=== PATIENT | female | born 1965 | race Caucasian/White ===

== ENCOUNTER 2018-02-07 10:40 | Emergency (ER) | payer MEDICAID ==
--- NOTE | 2018-02-07 12:10 | EDPHY ---
General - History Smoking Status: Never smoked Time Seen by Provider: 02/07/18 10:40 Narrative: CHIEF COMPLAINT: Left wrist injury HISTORY OF PRESENT ILLNESS: Patient presents with complaints of left wrist pain status post fall. She fell on the wrist on Tuesday morning. She was walking and did not see ice when she slipped, landing on outstretched left hand. She felt a sudden onset of pain left wrist. It has been constant. She at 1st thought it was just sprain, that she did not present for evaluation. She [facility], with a obtain an x-ray that revealed a angulated distal radius Colles fracture. The center here for intervention. She has no numbness, tingling or weakness. Her pain is minimal. She did not strike her head or lose consciousness. No pain on her left elbow or shoulder. Able to range the shoulder and elbow without difficulty. No other associated complaints or modifying factors. Patient is currently homeless and concerned about cost ESTABLISHED ORTHOPEDIST: None REVIEW OF SYSTEMS: Ten systems reviewed and are negative unless otherwise noted in the HPI PAST MEDICAL HISTORY: Denies any ongoing medical history PAST SURGICAL HISTORY: No recent surgical history. Tonsils remotely SOCIAL HISTORY: Nonsmoker. No drug or alcohol use. Currently homeless FAMILY HISTORY: Noncontributory EXAMINATION General Appearance: Alert, no distress Cardiovascular: Symmetric radial pulses 2+. Brisk cap refill in the fingers left hand Neurological: A&O, radial, ulnar and median sensory symmetric. Strength is symmetric in the interossei. No wrist drop. Skin: Warm and dry, no rash. No puncture. No laceration. No petechiae or purpura. Extremities: Significant tenderness of the left wrist circumferentially. There is moderate edema. Compartments remain soft in the left forearm. Range of motion of the wrist not tested due to known fracture. Range of motion of the fingers intact. Neurovascular intact distally fracture Psychiatric: Mood and affect normal DIFFERENTIAL DIAGNOSES: Including but not limited to fracture, fracture dislocation, fracture with angulation, dislocation, subluxation MDM: 12:00 p.m. Mechanical fall on Tuesday on stretch hand. She does have a comminuted, angulated distal radius fracture. She has no neuro complaints. Her pain is tolerable. She has no injury elsewhere. I will consult Orthopedics to determine if she is a candidate for reduction given her delay isn't a rodriguez. She is in no acute distress, resting comfortably. NPO as of 10:00 p.m. Last night 12:10 p.m. Case discussed with orthopedist Dr. Flores. He has reviewed the x-ray. He does recommend that we attempt to reduce the wrist, as this may prevent the need for surgical intervention. He does recommend that we informed the patient that she may need surgery and that she will need to be seen in his office later this week or early next week. 12:50 p.m. Closed reduction performed. Difficulty due to mobility of the distal fracture segment. I was able to get good reduction but then this moved quickly. This performed with C-arm fluoroscopy. 1:15 p.m. Post reduction shows minimal improvement. The fracture segment was very mobile during attempted reduction. She has been placed in excellent splint with neurovascular intact post splinting. Patient will need to follow up with Orthopedics for definitive care and possible surgical intervention. 1:50 p.m. X-ray reveals minimal improvement of the bone fragment. I have re-evaluated the patient and discussed this with her. She will likely be a surgical candidate. She has instructions to remain in the splint at all times until seen by orthopedist. She will contact orthopedist for outpatient follow-up. We discussed ED precautions. We discussed short course of pain medication, ice and elevation. Case management has provided great assistance with this and helping obtain appointment for the patient. She is discharged in stable condition. PROCEDURE: Closed reduction of distal radius fracture Consent: Verbal Location: left Anesthesia: Hematoma block Procedure: After time-out and good hematoma block, the patient was placed in finger traps. I then manipulated the wrist with volar manipulation. There was successful reduction by C-arm, but the fracture segment was highly mobile and auto subluxes immediately. I held traction and placed back in the finger traps. She will be splinted this way. Complications: None Post-reduction film: Minimal improvement SUPERVISION: Patient was independently examined, but I discussed the case with my secondary supervising physician Dr. Redding Orthopedic consultation telephone, Dr. Flores ED Precautions: Worsening pain. Erythema, edema, cyanosis, pallor, paresthesia or anesthesia. (Richar Burgos) Discussion: The patient was evaluated and managed by the Physician Medical Transcription. I discussed the patient's presentation and course with the midlevel provider with them and agree with the evaluation. My co-signature indicates that I have reviewed this chart and I agree with the findings and plan of care as documented. I am the secondary supervising physician. Patient underwent an attempted closed reduction utilizing the hematoma block. I reviewed the x-rays before and after the reduction. Minimal improvement was seen secondary to instability of the fracture. Dr. Flores is also aware. Patient will follow up tomorrow for re-evaluation and she understands that operative intervention may be likely. (Darlene Redding) - Objective Vital Signs: Initial Vital Signs Temperature (C) 37.1 C 02/07/18 10:48 Heart Rate 95 02/07/18 10:48 Respiratory Rate 18 02/07/18 10:48 Blood Pressure 138/94 H 02/07/18 10:48 O2 Sat (%) 93 02/07/18 10:48 O2 Delivery Mode Room Air Allergies/Adverse Reactions: No Known Allergies Allergy (Unverified 02/07/18 10:48) Home Medications: Medication Instructions Recorded NK [No Known Home Meds] 02/07/18 Medications Given: Discontinued Medications Hydrocodone Bitart/Acetaminophen ([place] 5/325mg Prepack#6) 1 btl [facility] Stop: 02/07/18 14:02 Last Admin: 02/07/18 14:24 Dose: Not Given Departure - Departure Disposition: Home, Routine, Self-Care Clinical Impression: Colles' fracture of left radius, initial encounter for closed fracture, Fall Condition: Good Instructions: Hydrocodone/Acetaminophen (By mouth), Wrist Fracture in Adults ( ED) Additional Instructions: 1. Ice and elevate often 2. Ibuprofen 400 mg every 6-8 hours as needed 3. Pain medication as provided as needed, 1 pill every 4-6 hours 4. Follow up at [facility] for further care and assistance with orthopedic follow-up 5. You will need to see an orthopedist within the next week to 10 days for definitive care. 6. ED precautions for worsening pain, numbness, tingling Referrals: Wild Flores MD [Medical Doctor] - As per Instructions [facility],. [Clinic] - As per Instructions
[2018-02-07] MEDS ORDERED: HYDROCOD/APAP 5/325 PREPACK#6 BTL TAKEHOME ONE (14:01)
[2018-02-07 14:27] VITALS: BP 123/71
--- NOTE | 2018-02-07 17:11 | ASMTCMCOM ---
CM Note CM Note Notes: Pt presented to the ED through triage from [facility] where she was assessed for left wrist injury she sustained from a mechanical fall on 02/04/18. X-rays show a left comminuted Colle's wrist fracture that may need surgery. Pt's wrist was placed in a fiberglass splint. Pt is homeless and states she has been staying outside recently. Pt has an appt with Gildardo Blum, Director of Retirement Services, at the [facility] tomorrow around 3pm and she hopes she'll be approved to be able to stay there. *Not sure what led up to her not being able to stay there. Patient is very pleasant and appreciative of all care and assistance. Pt was being seen by Lolita, Homeless Outreach RN at [facility] this morning. This CM called Lolita ( [facility] cell [phone]) and updated her of pt's status and need for follow-up care. Lolita said patient will hopefully stop by during their walk-in hours this , as she had discussed with patient prior to coming to the ED. Patient aware and agreeable to this plan. Spoke with Marta with [employer] and she said patient's Medicaid is active and she is already enrolled with [facility]. [facility], Daysi Bradley, and she was able to stop by and visit with pt in the ED. Daysi said the patient has her card and info and will reach out for additional needs and assistance. This CM called the on-call orthopedist, Dr. Flores at [facility] ([phone]) and was able to get patient an appt next 02/16/18 at 10am. Patient had been discharged from the ED by the time the appt was scheduled so this CM e-mailed patient at [email or web address] per pt's request (pt doesn't have a cell phone). Also called Lolita at and informed her of pt's ortho appt. Lolita states she will make sure patient has the info. and bus passes to get to and from the appt. CM available for additional assistance if needed. Date Signed: 02/07/2018 05:11 PM Electronically Signed By:Cindy Magaña RN
--- NOTE | 2018-02-07 17:14 | ASDISCHSUM ---
Discharge Information Plan Status:Home with No Needs Medically Cleared to Leave: Discharge Date:02/07/2018 02:27 PM CM D/C Disposition:Home, Routine, Self-Care ADT D/C Disposition:Home, Routine, Self-Care Projected Discharge Date:02/07/2018 02:27 PM Transportation at D/C:None or Unknown Discharge Delay Reason: Follow-Up Date:02/07/2018 02:27 PM Discharge Slot: Final Diagnosis: Placement Information Patient Contact Information Contact Name:BETSY Relationship: Address: Home Phone: Work Phone: City: Alternate Phone: State/[email or web address] Code: Email: Financial Information Financial Class:Medicaid Primary Plan Desc:MEDICAID HEALTH [employer] Primary Plan Number:[id number] Secondary Plan Desc: Secondary Plan Number: Assessment Information [facility] Progress Note CM Note CM Note Notes: Pt presented to the ED through triage from [facility] where she was assessed for left wrist injury she sustained from a mechanical fall on 02/04/18. X-rays show a left comminuted Colle's wrist fracture that may need surgery. Pt's wrist was placed in a fiberglass splint. Pt is homeless and states she has been staying outside recently. Pt has an appt with Gildardo Blum, Director of Group Home Services, at the [facility] tomorrow around 3pm and she hopes she'll be approved to be able to stay there. *Not sure what led up to her not being able to stay there. Patient is very pleasant and appreciative of all care and assistance. Pt was being seen by Lolita Homeless Outreach RN at [facility] this morning. This CM called Lolita ([facility] cell [phone]) and updated her of pt's status and need for follow-up care. Lolita said patient will hopefully stop by during their walk-in hours this , as she had discussed with patient prior to coming to the ED. Patient aware and agreeable to this plan. Spoke with Marta with [employer] and she said patient's Medicaid is active and she is already enrolled with [facility]. This CM contacted [facility] RN for [facility], Daysi Bradley, and she was able to stop by and visit with pt in the ED. Daysi said the patient has her card and info and will reach out for additional needs and assistance. This CM called the on-call orthopedist, Dr. Flores at [facility] ([phone]) and was able to get patient an appt next 02/16/18 at 10am. Patient had been discharged from the ED by the time the appt was scheduled so this CM e-mailed patient at [email or web address] per pt's request (pt doesn't have a cell phone). Also called Lolita at and informed her of pt's ortho appt. Lolita states she will make sure patient has the info. and bus passes to get to and from the appt. CM available for additional assistance if needed. Date Signed: 02/07/2018 05:11 PM Electronically Signed By:Cindy Magaña RN Intervention Information Intervention Type:Health Clinic Date of Service:02/07/2018 05:11 PM Patient Type:Emergency Room Staff Member:KUSHAL Magaña Sharon Hours:0.5 Discipline:Canal Driver Severity: Comment:Follow-up with ortho specialist Intervention Type:Post Acute Communication Date of Service:02/07/2018 05:11 PM Patient Type:Emergency Room Staff Member:KUSHAL Magaña Sharon Hours:0.5 Discipline:Canal Driver Severity: Comment:[facility], [facility]
== END 2018-02-07 14:27 | disposition home or self-care (01) ==
PROC: 0PSJXZZ Reposition Left Radius, External Approach (ICD-10-PCS; principal; 2018-02-07)
DX: S52.532A Colles' fracture of left radius, initial encounter for closed fracture (principal); W00.0XXA Fall on same level due to ice and snow, initial encounter; Y99.8 Other external cause status; Y93.01 Activity, walking, marching and hiking

== ENCOUNTER 2018-02-27 10:42 | Observation (INO) | payer MEDICAID ==
--- NOTE | 2018-02-24 16:50 | GHP ---
[f rep st] PREOP HISTORY AND PHYSICAL DATE OF ADMISSION: 02/27/2018 DATE OF PLANNED PROCEDURE: 02/27/2018. ADMISSION DIAGNOSIS: Intra-articular distal radius fracture, right. PLANNED PROCEDURE: Open reduction, internal fixation of right distal radius. HISTORY OF PRESENT ILLNESS: Darlene is a 52-year-old homeless woman who slipped and fell on the ice on A pril 2017. She sustained a displaced intra-articular distal radius fracture. She was close redu yusuf in the emergency department, and I saw her in the office on 02/16/2018. Repeat x-rays were taken in the office which continued to show a scapholunate fragment with widening, and I have recommended proceeding with an open reduction, internal fixation of her wrist fracture. PRIOR MEDICAL HISTORY: None. PRIOR SURGICAL HISTORY: None. MEDICATIONS: No medications. ALLERGIES: No known drug allergies. SOCIAL HISTORY: She is homeless. She does not smoke. She does not drink alcohol. REVIEW OF SYSTEMS: No shortness of breath, chest pain. PHYSICAL EXAMINATION: VITAL SIGNS: She is 5 feet 7 inches tall; weighs 137 pounds. Blood pressure is 125/78, heart rate 60. Respiratory rate is 14 on room air. GENERAL: Alert and oriented x3. BETSY NT: Normocephalic, atraumatic. Extraocular muscles intact. NECK: Supple. There is no lymphadenop athy. No JVD. CHEST: Clear to auscultation. CARDIOVASCULAR: Regular rate and rhythm. ABDOMEN: Soft, nontender, nondistended. IMAGING STUDIES: X-rays: Yal-cfcn-cdthnfoch films as well as follow up x-rays in the office were re viewed. Show an intra-articular distal radius fracture with intra-articular whitening and some short ening. ASSESSMENT: Displaced intra-articular distal radius fracture. PLAN: Long discussion with Darlene. This will heal with cast immobilization. However, she is a high ri sk for post-traumatic arthritis. I recommend proceeding with an open reduction and internal fixation of the distal fragments to give her the best possible chance for a good outcome she has decided to p roceed with the surgery. Risks and benefits including postoperative stiffness and infection were dis cussed. I think she will have to spend a night in the hospital. She has trouble tolerating narcotic pain medicines, and I do worry about discharging her, given her living situation without a good pain control plan with her. She is in agreement with that plan and will plan on surgery on Tuesday the at [facility]. /[id number]/MODL
[2018-02-27] MEDS ORDERED: ceFAZolin 2 GM/SWFI 2 GM/20 ML SYR IVP ONE (11:42)
[2018-02-27] MEDS ORDERED: LR 1,000 ML IV ONE (11:43)
[2018-02-27] MEDS ORDERED: BUPIVACAINE/EPI 0.5% 30 ML SDV ONE (11:56)
[2018-02-27] MEDS ORDERED: MIDAZOLAM 2 MG/2 ML VIAL IVP ONE (11:58)
--- NOTE | 2018-02-27 12:02 | PDANEPAE ---
ANE History of Present Illness R distal radius ANE Past Medical History - Cardiovascular History Hx Hypertension: No Hx Arrhythmias: No Hx Chest Pain: No Hx Coronary Artery / Peripheral Vascular Disease: No Hx CHF / Valvular Disease: No Hx Palpitations: No - Pulmonary History Hx COPD: No Hx Asthma/Reactive Airway Disease: No Hx Recent Upper Respiratory Infection: No Hx Oxygen in Use at Home: No Hx Sleep Apnea: No Sleep Apnea Screening Result - Last Documented: Negative - Neurologic History Hx Cerebrovascular Accident: No Hx Seizures: No Hx Dementia: No - Endocrine History Hx Diabetes: No - Renal History Hx Renal Disorders: No - Liver History Hx Hepatic Disorders: No - Neurological & Psychiatric Hx Hx Neurological and Psychiatric Disorders: No Neurological / Psychiatric History Comment: mild anxiety in teens and 20's - Cancer History Hx Cancer: No - Congenital Disorder History Hx Congenital Disorders: No - GI History Hx Gastrointestinal Disorders: No Gastrointestinal History Comment: occ constipation - Other Health History Other Health History: occ rash since teens- poss allergy to grass - Chronic Pain History Chronic Pain: No - Surgical History Prior Surgeries: late 70's teeth removed prior to braces being applied. tonsillectomy as young child ANE Review of Systems Review of systems is: negative Review of Systems: - Exercise capacity METS (RN): 4 METS ANE Patient History - Allergies Allergies/Adverse Reactions: No Known Allergies Allergy (Verified 02/23/18 15:25) - Home Medications Home medications: home medication list seen and reviewed Home Medications: NK [No Known Home Meds] 02/23/18 [Last Taken Unknown] - Anes Hx Anes Hx: no prior problems - Smoking Hx Smoking Status: Never smoked - Family Anes Hx Family Anes Hx: none Family Hx Anesthesia Complications: none ANE Labs/Vital Signs - Vital Signs Blood Pressure: 136/59 Heart Rate: 67 Respiratory Rate: 18 O2 Sat (%): 95 Height: 172.72 cm Weight: 62.142 kg ANE Physical Exam - Airway Neck exam: FROM Mallampati Score: Class 1 Mouth exam: poor dentition - Pulmonary Pulmonary: no respiratory distress - Cardiovascular Cardiovascular: regular rate and rhythym - ASA Status ASA Status: I ANE Anesthesia Plan Anesthesia Plan: GA w LMA
--- NOTE | 2018-02-27 12:30 | PDHPUP ---
History & Physical Update H&P update statement: This history and physical update is based on an assessment of the patient which was completed after admission or registration (within 24 hours), but prior to the surgery/procedure. H&P update: H&P reviewed & patient examined, no change in patient's condition since H&P completed
[2018-02-27] MEDS ORDERED: SCOPOLAMINE HYDROBROMIDE 1 MG/3 DAYS PATCH TD ONE ×2 (12:31→12:34)
[2018-02-27] MEDS ORDERED: ONDANSETRON 4 MG/2 ML VIAL ONE (12:47)
[2018-02-27] MEDS ORDERED: LIDOCAINE 2% 100 MG/5 ML SYR ONE (12:47)
[2018-02-27] MEDS ORDERED: fentaNYL 100 MCG/2 ML INJ ONE ×2 (12:47→13:38)
[2018-02-27] MEDS ORDERED: DEXAMETHASONE 4 MG/ML VIAL ONE (12:47)
[2018-02-27] MEDS ORDERED: PROPOFOL 200 MG/20 ML VIAL ONE (12:47)
[2018-02-27] MEDS ORDERED: KETOROLAC 30 MG/1 ML SDV ONE (12:54)
[2018-02-27] MEDS ORDERED: HYDROCODONE/APAP 5/325 TAB PO PRN (13:19)
[2018-02-27] MEDS ORDERED: ACETAMINOPHEN 500 MG TAB PO PRN (13:19)
[2018-02-27] MEDS ORDERED: PROMETHAZINE HCL 25 MG/ML INJ IVP PRN (13:19)
[2018-02-27] MEDS ORDERED: HYDROmorphONE/DILAUDID 2 MG/ML INJ IVP PRN (13:19)
[2018-02-27] MEDS ORDERED: oxyCODONE IR 5 MG TAB PO PRN (13:19)
[2018-02-27] MEDS ORDERED: ONDANSETRON 4 MG/2 ML VIAL IVP PRN (13:19)
[2018-02-27] MEDS ORDERED: fentaNYL 100 MCG/2 ML INJ IVP PRN (13:19)
[2018-02-27] MEDS ORDERED: DEXAMETHASONE 4 MG/ML VIAL IVP PRN (13:19)
[2018-02-27] MEDS ORDERED: MEPERIDINE 25 MG/ML SYR IVP PRN (13:19)
[2018-02-27] MEDS ORDERED: NALOXONE HCL 0.4 MG/ML INJ IVP PRN (13:19)
--- NOTE | 2018-02-27 13:19 | POSTANESTH ---
Post Anesthetic Evaluation Cardiovascular Status: Normal, Stable, Similar to Pre-Op Cond Respiratory Status: Normal, Stable, Similar to Pre-op Cond. Level of Consciousness/Mental Status: Can Participate in Eval, Mildly Sleepy, Arousable Pain Control: Adequate, Prn Tx Ordered Nausea/Vomiting Control: Adequate, Prn Tx Ordered Complications Possibly Related to Anesthesia: None Noted
[2018-02-27] MEDS ORDERED: BUPIVACAINE 0.5% 30 ML SDV ONE (13:36)
[2018-02-27] MEDS ORDERED: ACETAMINOPHEN 325 MG TAB PO PRN (13:56)
[2018-02-27] MEDS ORDERED: OXYCODONE/APAP 5/325 TAB PO PRN (13:56)
--- NOTE | 2018-02-27 13:56 | POSTOPPROG ---
Post Op Note Date of Operation: 02/27/18 Surgeon: Wild Flores Anesthesiologist: Vira Anesthesia: GET(General Endotracheal) Pre-op Diagnosis: Lt intraarticular distal radius fracture Post-op Diagnosis: same Indication: displaced fracture Procedure: ORIF distal radius left Inf/Abcess present in the surg proc area at time of surgery?: No EBL: Minimal Complications: none
[2018-02-27] MEDS ORDERED: D5W 1/2 NS W/ 20 KCl/L 1,000 ML IV SCH (14:00)
[2018-02-27] MEDS: KETOROLAC 15 MG/1 ML SDV IVP SCH (17:36)
--- NOTE | 2018-02-27 17:42 | GOP ---
[f rep st] OPERATIVE REPORT DATE OF OPERATION: 02/27/2018 SURGEON: Wild Flores MD ANESTHESIA: General. ANESTHESIOLOGIST: Yuniel Constantino MD PREOPERATIVE DIAGNOSIS: Intra-articular distal radius fracture, left. POSTOPERATIVE DIAGNOSIS: Intra-articular distal radius fracture, left. PROCEDURE PERFORMED: Open reduction, internal fixation, left distal radius fracture. FINDINGS: ESTIMATED BLOOD LOSS: Minimal. INDICATIONS: The patient is a 52-year-old homeless woman who sustained a slip and a fall on the ice approximately 3 weeks ago and sustained intra-articular distal radius fracture. I recommend proceedi ng with open reduction, internal fixation due to the step-off deformity within the joint. DESCRIPTION OF PROCEDURE: After appropriate informed consent was obtained, patient taken to the oper ating room, placed supine on the operating table. Time-out was performed. Patient was identified, c orrect site was identified, matched with the radiographs available in the room. She received 2 g of Ancef preoperatively. Following the induction of general endotracheal tube anesthesia, left upper ex tremity was prepped and draped in usual sterile fashion. I exsanguinated the limb, inflated the tour niquet to 250 mmHg. Total tourniquet time was 47 minutes. I made a standard volar incision centered over the flexor carpi radialis tendon. Soft tissues were c arefully dissected. I bluntly dissected the rent in the pronator muscle. The radial artery and medi an nerve were protected throughout the entirety of the case. There was a scapholunate fragment that was depressed. I was able to free this up and elevate it, and reduce the fracture. I placed a volar locking plate. Placed 1 shaft screw, confirmed its position with AP and lateral fluoroscopic images . Then placed 1 distal compression screw which pulled the bone to the plate, and then a series of lo cking screws. I went back and replaced with long compression screw to a short locking screw, and put 2 more locking screws in the shaft. Final imaging showed satisfactory reduction of the fracture. H ardware was in satisfactory alignment. The fracture was reduced nicely. Wound was irrigated. The w ound was closed with 2-0 Vicryl and 4-0 Monocryl in a subcuticular fashion. I instilled 30 mL of 0.5 % Marcaine plain around the incision. Sterile dressing and a volar splint were applied. Patient was awakened from anesthesia, taken to recovery room in satisfactory condition. There were no immediate intraoperative complications. COMPLICATIONS: None. DRAINS: None. TOTAL TOURNIQUET TIME: 47 minutes at 250 mmHg. IMPLANT USED: Synthes volar locking plate. /[id number]/MODL
[2018-02-28] MEDS: KETOROLAC 15 MG/1 ML SDV IVP SCH ×2 (00:41→06:02)
[2018-02-28 07:31] VITALS: BP 115/72
--- NOTE | 2018-02-28 09:00 | SOAPPROG ---
KIMBERLY Progress Note Assessment/Plan: Assessment: Plan: 02/28/18 08:58 S/P ORIF distal radius pain controlled DC Today F/U 7-10 days keep splint in place at all times Subjective: pain controlled Objective: splint c/d/i moving fingers brisk cap refill all digits Vital Signs Temp Pulse Resp BP Pulse Ox 36.6 C 54 L 16 115/72 99 02/28/18 07:29 02/28/18 07:29 02/28/18 07:29 02/28/18 07:29 02/28/18 07:29 02/27/18 02/28/18 03/01/18 05:59 05:59 05:59 Intake Total 1400 Output Total 505 Balance 895 ICD10 Worksheet Patient Problems: Problems Problem Status Onset Distal radius fracture, left Acute - ICD10 Problem Qualifiers (1) Distal radius fracture, left Qualifiers: Encounter type: subsequent encounter Fracture type: closed Fracture morphology: other intra-articular Fracture healing: with routine healing Qualified Code(s): S52.572D - Other intraarticular fracture of lower end of left radius, subsequent encounter for closed fracture with routine healing
--- NOTE | 2018-02-28 11:47 | ASMTCMCOM ---
CM Note CM Note Notes: Pt medically stable for d/c after ORIF of distal radius. Pt homeless, will d/c with Tylenol paid for through CM vasquez cast ($7). No other d/c needs identified. Date Signed: 02/28/2018 11:47 AM Electronically Signed By:CHAPARRO Eng
[2018-02-28] MEDS ORDERED: PATCH REMOVAL 1 EA PATCH TD ONE (12:31)
== END 2018-02-28 12:47 | disposition home or self-care (01) ==
LOC: F3N 10:42
PROVIDERS: ADMIT Orthopaedic Surgery; ATTEND Orthopaedic Surgery
PROC: 0PSJ04Z Reposition Left Radius with Internal Fixation Device, Open Approach (ICD-10-PCS; principal; 2018-02-27 12:45)
DX: S52.572A Other intraarticular fracture of lower end of left radius, initial encounter for closed fracture (principal); W00.9XXA Unspecified fall due to ice and snow, initial encounter; Y92.9 Unspecified place or not applicable; Z59.0 Homelessness
CPT/HCPCS: C1713; J0690; J1100; J1885; J2001; J2250; J2405; J2704; J3010

== ENCOUNTER → 2018-03-29 | Outpatient (CLI) | payer MEDICAID | LOC: FIMAGING 09:13 | PROVIDERS: ATTEND Orthopaedic Surgery | DX: S52.592D Other fractures of lower end of left radius, subsequent encounter for closed fracture with routine healing (principal) ==

== ENCOUNTER → 2018-05-10 | Outpatient (CLI) | payer MEDICAID | LOC: FLAB 10:27 | PROVIDERS: ATTEND Orthopaedic Surgery | DX: S52.532D Colles' fracture of left radius, subsequent encounter for closed fracture with routine healing (principal) ==